=== PATIENT | male | born 1970 | race Caucasian/White ===

== ENCOUNTER 2018-01-17 11:05 | Day surgery (SDC) | payer MEDICAID ==
[2018-01-17] MEDS ORDERED: ceFAZolin 2 GM/DEXTROSE 100 ML IV ONE (11:31)
[2018-01-17] MEDS ORDERED: LR 1,000 ML IV ONE (11:31)
--- NOTE | 2018-01-17 11:34 | PDANEPAE ---
ANE History of Present Illness 47 year old male for robot assisted laparoscopic bilateral inguinal hernia repair. ANE Past Medical History - Cardiovascular History Hx Hypertension: No Hx Arrhythmias: No Hx Chest Pain: No Hx Coronary Artery / Peripheral Vascular Disease: No Hx CHF / Valvular Disease: No Hx Palpitations: No - Pulmonary History Hx COPD: No Hx Asthma/Reactive Airway Disease: No Hx Recent Upper Respiratory Infection: No Hx Oxygen in Use at Home: No Hx Sleep Apnea: No Sleep Apnea Screening Result - Last Documented: Negative Pulmonary History Comment: 1991 SPONTANEOUS PNEUMOTHORAX - Neurologic History Hx Cerebrovascular Accident: No Hx Seizures: No Hx Dementia: No - Endocrine History Hx Diabetes: No - Renal History Hx Renal Disorders: No - Liver History Hx Hepatic Disorders: No - Neurological & Psychiatric Hx Hx Neurological and Psychiatric Disorders: No - Cancer History Hx Cancer: No - Congenital Disorder History Hx Congenital Disorders: No - GI History Hx Gastrointestinal Disorders: No - Other Health History Other Health History: neg - Chronic Pain History Chronic Pain: Yes (hernia pain) - Surgical History Prior Surgeries: wisdom teeth ANE Review of Systems Review of Systems: - Exercise capacity Exercise capacity: >=4 METS METS (RN): 5 METS - Systems Muscolosketal: Reports: other (inguinal hernia pain) ANE Patient History - Allergies Allergies/Adverse Reactions: No Known Allergies Allergy (Verified 01/17/18 11:33) - Home Medications Home medications: home medication list seen and reviewed Home Medications: NK [No Known Home Meds] 01/16/18 [Last Taken Unknown] - Anes Hx Anes Hx: no prior problems - Smoking Hx Smoking Status: Light smoker Marijuana use: No - Alcohol Use Alcohol Use: Rarely - Family Anes Hx Family Anes Hx: neg - N/A Family Hx Anesthesia Complications: neg ANE Labs/Vital Signs - Vital Signs Vital Signs: reviewed preoperatively; see RN documention for details Height: 175.26 cm Weight: 61.235 kg ANE Physical Exam - Airway Neck exam: FROM Mallampati Score: Class 2 Mouth exam: poor dentition, dentures, little - Pulmonary Pulmonary: no respiratory distress - Cardiovascular Cardiovascular: regular rate and rhythym - ASA Status ASA Status: I ANE Anesthesia Plan Anesthesia Plan: general endotracheal anesthesia Total IV Anesthesia: No
[2018-01-17] MEDS ORDERED: EPINEPHrine 1 MG/ML INJ ONE (11:56)
[2018-01-17] MEDS ORDERED: BUPIVACAINE 0.25% 30 ML SDV ONE (11:56)
--- NOTE | 2018-01-17 12:01 | PDHPUP ---
History & Physical Update H&P update statement: This history and physical update is based on an assessment of the patient which was completed after admission or registration (within 24 hours), but prior to the surgery/procedure. H&P update: H&P reviewed & patient examined, no change in patient's condition since H&P completed
[2018-01-17] MEDS ORDERED: MIDAZOLAM 2 MG/2 ML VIAL ONE (12:22)
[2018-01-17] MEDS ORDERED: MIDAZOLAM 2 MG/2 ML VIAL IVP ONE (12:22)
[2018-01-17] MEDS ORDERED: fentaNYL 100 MCG/2 ML INJ ONE ×2 (12:26→14:11)
[2018-01-17] MEDS ORDERED: PROPOFOL 200 MG/20 ML VIAL ONE (12:26)
[2018-01-17] MEDS ORDERED: LIDOCAINE 2% 5 ML SDV ONE (12:42)
[2018-01-17] MEDS ORDERED: DEXAMETHASONE 4 MG/ML VIAL ONE (12:42)
[2018-01-17] MEDS ORDERED: ROCURONIUM 50 MG/5 ML VIAL ONE (12:42)
[2018-01-17] MEDS ORDERED: ONDANSETRON 4 MG/2 ML VIAL ONE (12:42)
[2018-01-17] MEDS ORDERED: PHENYLEPHRINE HCL 100 MCG/ML SYR IVP PRN (13:03)
[2018-01-17] MEDS ORDERED: oxyCODONE IR 5 MG TAB PO PRN (13:03)
[2018-01-17] MEDS ORDERED: LR 500 ML IV PRN (13:03)
[2018-01-17] MEDS ORDERED: ONDANSETRON 4 MG/2 ML VIAL IVP PRN (13:03)
[2018-01-17] MEDS ORDERED: ACETAMINOPHEN 500 MG TAB PO PRN (13:03)
[2018-01-17] MEDS ORDERED: NALOXONE HCL 0.4 MG/ML INJ IVP PRN (13:03)
[2018-01-17] MEDS ORDERED: SUGAMMADEX SODIUM 200 MG/2 ML VIAL IVP ONE (13:05)
[2018-01-17] MEDS ORDERED: KETOROLAC 30 MG/1 ML SDV ONE (13:06)
[2018-01-17] MEDS: fentaNYL 100 MCG/2 ML INJ IVP PRN ×2 (14:13→14:24)
[2018-01-17] MEDS ORDERED: HYDROmorphONE/DILAUDID 2 MG/ML INJ ONE (14:27)
[2018-01-17] MEDS: HYDROmorphONE/DILAUDID 2 MG/ML INJ IVP PRN ×2 (14:33→14:43)
--- NOTE | 2018-01-17 14:37 | POSTOPPROG ---
Post Op Note Date of Operation: 01/17/18 Surgeon: Kevin Stearns Auto Service Writer: HUNTER Salguero Anesthesiologist: Shahzad Anesthesia: GET(General Endotracheal) Pre-op Diagnosis: Bilateral inguinal hernias Post-op Diagnosis: same Procedure: Robotic assisted shirin inguinal hernia repair with mesh Findings: L direct, R indirect Inf/Abcess present in the surg proc area at time of surgery?: No EBL: Minimal
[2018-01-17] MEDS ORDERED: oxyCODONE IR 5 MG TAB ONE (15:11)
--- NOTE | 2018-01-17 15:40 | POSTANESTH ---
Post Anesthetic Evaluation Cardiovascular Status: Normal, Stable, Similar to Pre-Op Cond Respiratory Status: Normal, Stable, Similar to Pre-op Cond. Level of Consciousness/Mental Status: Can Participate in Eval, Alert and Oriented Pain Control: Adequate, Prn Tx Ordered Nausea/Vomiting Control: Adequate, Prn Tx Ordered Complications Possibly Related to Anesthesia: None Noted
--- NOTE | 2018-01-17 16:04 | GOP ---
[f rep st] OPERATIVE REPORT DATE OF OPERATION: 01/17/2018 SURGEON: Kevin Stearns MD UTILITY CLERK: Juanis Hinojosa, certified surgical clinical research assistant. ANESTHESIA: General endotracheal. ANESTHESIOLOGIST: Dr. Juve Pike. PREOPERATIVE DIAGNOSIS: Bilateral inguinal hernias. POSTOPERATIVE DIAGNOSIS: Bilateral inguinal hernias. PROCEDURE PERFORMED: Robotic assisted laparoscopic bilateral hernia repair with mesh. FINDINGS: Bilateral indirect hernia defects successfully reduced and repaired with Bard 3D Light lar ge-size mesh. SPECIMENS: None. ESTIMATED BLOOD LOSS: 5 cc. DESCRIPTION OF PROCEDURE: The patient was greeted in the preoperative suite, and once again, risks, benefits, and alternatives were discussed. Consent was signed. He was then brought back to the oper ative suite, placed on the OR table in a supine position. After all anesthesia machines, including S CDs were on and functioning, a [employer] time-out was performed. After successful in duction of general anesthesia, the patient's abdomen was prepped and draped in typical sterile fashio n. I entered the abdomen via a supraumbilical cutdown through which the Veress needle was passed. I ach ieved pneumoperitoneum to 15 mmHg, which was well tolerated by patient. Through this incision, I the n inserted an 8 mm trocar. I then inserted 2 additional 8 mm trocars, 1 in the right upper, 1 in the left upper quadrant, both under direct visualization. The patient was then placed in gentle [place] position and the robot was docked. I turned my attention first toward the patient's right side. I created a preperitoneal flap by disse cting just adjacent to the ASIS medial to the pubic tubercle. My dissection was carried down to Coop er's ligament medially, as well as the extent of the peritoneal flap laterally. After this was done, I successfully reduced the sac from the cord structures and successfully skeletonized it. Once the flap was of appropriate, I interrogated both the direct and femoral spaces and identified no other hernia defects. A Bard 3D Light right-sided mesh large size was then brought. It was anchore d to Neno's ligament, as well as on either side of the inferior epigastric vessels. It was allowed to lay flat. The peritoneal flap was then closed with a V-Loc suture. In the same fashion, I turned my attention toward the left side. My preperitoneal flap was made in t he same extent as it was on the contralateral side. There was a large indirect defect on this side a s well. After my space was created appropriately, I interrogated the direct and femoral spaces and f ound no herniation at this site. A similar piece of mesh for the left side was brought and it was an chored to Neno's ligament, as well as either side of the inferior epigastric vessels. The peritone al flap was then closed with a running V-Loc suture. Pneumoperitoneum was then evacuated. The skin was closed with Monocryl, over which Dermabond was placed. The patient was then extubated in the ope rative suite and taken to the PACU in satisfactory condition. DRAINS: None. COUNTS: All counts were reported as correct x2. /[id number]/MODL
--- NOTE | 2018-01-17 16:28 | ASMTCMCOM ---
CM Note CM Note Notes: Patient had elective bilateral inguinal hernia repair as outpatient. He previously came to the [facility] inquiring about respite services. Due to the lack of flushing toilets at [facility] right now, we have reserved two nights for him at the [facility] (ok'ed per BB). His [facility] Omer picked him up to transport him there. RX were filled by [facility] and delivered to bedside. [facility] outreach CM will follow up with patient on 01/19/18 or sooner PRN. Date Signed: 01/17/2018 04:27 PM Electronically Signed By:Lisseth Hewitt RN
[2018-01-17 16:34] VITALS: BP 108/69
== END 2018-01-17 16:20 | disposition home or self-care (01) ==
LOC: FSGY 11:05
PROVIDERS: ATTEND Surgery
PROC: 0YUA4JZ Supplement Bilateral Inguinal Region with Synthetic Substitute, Percutaneous Endoscopic Approach (ICD-10-PCS; principal; 2018-01-17 12:45)
PROC: 8E0W8CZ Robotic Assisted Procedure of Trunk Region, Via Natural or Artificial Opening Endoscopic (ICD-10-PCS; principal; 2018-01-17 12:45)
DX: K40.20 Bilateral inguinal hernia, without obstruction or gangrene, not specified as recurrent (principal); F17.210 Nicotine dependence, cigarettes, uncomplicated
CPT/HCPCS: C1781; J0171; J0690; J1100; J1170; J1885; J2250; J2405; J2704; J3010